=== PATIENT | male | born 1990 | race Two or more races ===

== ENCOUNTER 2016-12-10 22:44 | Observation (INO) | payer MEDICAID ==
[~2016-12-10] VITALS: Ht 167.6 cm; Wt 81.6 kg
[2016-12-11 01:54] VITALS: BP 118/74
== END 2016-12-11 08:44 | disposition home or self-care (01) | DRG 351 ==
LOC: ER 22:46 → TELE 12-11 08:04 → ER 12-11 08:44
PROVIDERS: ADMIT Emergency Medicine; ATTEND Emergency Medicine
DX: M25.562 Pain in left knee (principal); M25.572 Pain in left ankle and joints of left foot; V43.52XA Car driver injured in collision with other type car in traffic accident, initial encounter; Y93.89 Activity, other specified; Y92.89 Other specified places as the place of occurrence of the external cause; Y99.8 Other external cause status
CPT/HCPCS: 73562; 73610; 99284; G0378

== ENCOUNTER 2019-10-03 14:58 | Emergency (ER) | payer MEDICAID, OTHER ==
[~2019-10-03] VITALS: Ht 170.2 cm; Wt 77.1 kg
[2019-10-03 16:56] VITALS: BP 128/74
[2019-10-03] MEDS ORDERED: cefTRIAXone SOD 1,000 MG VL IM ONE (17:30)
[2019-10-03] MEDS ORDERED: LIDOCAINE 1% HCL (LOCAL ANESTH.) INJ 20ML MDV ONE (17:41)
== END 2019-10-03 18:07 | disposition home or self-care (01) ==
LOC: ER 14:58
DX: J20.9 Acute bronchitis, unspecified (principal); J02.9 Acute pharyngitis, unspecified
CPT/HCPCS: 71046; 96372; 99283; J0696; J2001